=== PATIENT | male | born 1980 ===

== ENCOUNTER 2017-05-31 02:25 | Emergency (ER) | payer SELFPAY ==
--- NOTE | 2017-05-31 04:16 | C.PDOC ---
History Of Present Illness 37 y/o male presents to the ER c/o anxiety stating that he "smoke to much" CHECK WEIGHER. Patient admits to marijuana use. Denies SOB, fever, chest pain, other drug use, or other complaints. Time Seen by Provider: 05/31/17 02:43 Chief Complaint (Nursing): Substance Abuse History Per: Patient History/Exam Limitations: no limitations Onset/Duration Of Symptoms: Hrs Current Symptoms Are (Timing): Still Present Suicide/Self Injury Attempted (Context): None Modifying Factor(s): Marijuana Severity: Mild Involuntary Hold By: None Recent travel outside of the [place]: No Additional History Per: Patient Past Medical History Reviewed: Historical Data, Nursing Documentation, Vital Signs Vital Signs: Last Vital Signs Temp 98.3 F 05/31/17 02:30 Pulse 80 05/31/17 06:00 Resp 14 05/31/17 06:00 BP 130/80 05/31/17 06:00 Pulse Ox 100 05/31/17 06:21 Family History: States: Unknown Family Hx - Social History Hx Alcohol Use: Yes Hx Substance Use: Yes - Immunization History Hx Tetanus Toxoid Vaccination: Yes Hx Influenza Vaccination: No Hx Pneumococcal Vaccination: No Review Of Systems Except As Marked, All Systems Reviewed And Found Negative. Constitutional: Negative for: Fever, Chills Respiratory: Negative for: Shortness of Breath Psych: Positive for: Anxiety Physical Exam - Physical Exam Appears: Well, Non-toxic, No Acute Distress, Other (Anxious) Skin: Warm, Dry Head: Atraumatic, Normacephalic Eye(s): bilateral: Normal Inspection, PERRL, EOMI Nose: Normal Oral Mucosa: Moist Neck: Normal ROM, Supple Chest: Symmetrical Cardiovascular: Rhythm Regular Respiratory: Normal Breath Sounds, No Rales, No Rhonchi, No Wheezing, Other ( Speaking in full sesntences) Gastrointestinal/Abdominal: Soft, No Tenderness Neurological/Psych: Oriented x3, Normal Speech, Normal Cognition ED Course And Treatment O2 Sat by Pulse Oximetry: 100 (RA) Pulse Ox Interpretation: Normal Progress Note: Pt was evaluated in ED for 4.5 hours with serial re-evaluation. Pt had no complaints, just wanted to be in ED "just in case.". On re-evaluation , 7 am, I feel much better but I need more time. CAse endorsed to BRENDA Jama pending re-evaluation. Disposition - Disposition Disposition: HOME/ ROUTINE Disposition Time: 06:54 Condition: STABLE Forms: [employer] (Austrian) - Clinical Impression Clinical Impression: Marijuana use - Scribe Statement The provider has reviewed the documentation as recorded by the Scribe Niesha atkins All medical record entries made by the Scribe were at my direction and personally dictated by me. I have reviewed the chart and agree that the record accurately reflects my personal performance of the history, physical exam, medical decision making, and the department course for this patient. I have also personally directed, reviewed, and agree with the discharge instructions and disposition.
[2017-05-31 07:34] VITALS: BP 115/68; PULSE 73; RESP 18; TEMP 98.4; O2SAT 99
== END 2017-05-31 07:48 | disposition home or self-care (01) ==
LOC: C.ER 02:25
DX: F12.10 Cannabis abuse, uncomplicated (principal)